=== PATIENT | male | born 1980 | race Caucasian/White ===

== ENCOUNTER 2016-08-15 16:31 | Inpatient (IN) | payer OTHER ==
[2016-08-15] VITALS (7 sets, daily range): BP systolic 114–147; BP diastolic 70–93; PULSE 96–115; RESP 16–18; TEMP 95.6–98.3; O2SAT 97–100
[~2016-08-15] VITALS: Ht 185.4 cm; Wt 77.0 kg
[2016-08-15] MEDS ORDERED: SODIUM CHLOR 0.9% 1000 ML INJ 800 ML IV ONE (17:32)
[2016-08-15] MEDS ORDERED: SODIUM CHLOR 0.9% 1000 ML INJ 1,000 ML IV ONE ×2 (17:32→19:00)
[2016-08-15] MEDS ORDERED: NICOTINE 21 MG/24 HR PATCH TD ONE (17:45)
[2016-08-15] MEDS ORDERED: MORPHINE SULFATE 4 MG/ML INJ IV PUSH ONE (17:45)
[2016-08-15] MEDS ORDERED: VANCOMYCIN INJ 1,000 MG in SODIUM CHLOR 0.9% 250 ML INJ 250 ML IV ONE (17:45)
[2016-08-15] MEDS ORDERED: LIDOCAINE 1%/EPINEPHrine 1:100,000 SOLN 20 ML VIAL INFIL ONE (18:15)
[2016-08-15] MEDS ORDERED: LORA-474 PO (18:15)
[2016-08-15 18:17] LABS: AUTOMATED NEUTROPHIL # 8.7 TH/MM3 (1.8-7.7); BASOPHIL # 0.1 TH/MM3 (0-0.2); BASOPHIL % 0.4 % (0.0-2.0); EOSINOPHIL # 0.3 TH/MM3 (0-0.4); EOSINOPHIL % 2.2 % (0.0-4.0); HEMATOCRIT 32.4 % (39.0-51.0); LYMPH % 18.9 % (9.0-44.0); LYMPHOCYTE # 2.3 TH/MM3 (1.0-4.8); MEAN CELL VOLUME 85.7 FL (80.0-100.0); MEAN CORPUSCULAR HEMOGLOBIN 28.1 PG (27.0-34.0); MEAN CORPUSCULAR HGB CONC 32.8 % (32.0-36.0); MONO % 6.6 % (0.0-8.0); NEUT % 71.9 % (16.0-70.0); PLATELET COUNT 349 TH/MM3 (150-450); RED BLOOD COUNT 3.78 MIL/MM3 (4.50-5.90); RED CELL DISTRIBUTION WIDTH 15.3 % (11.6-17.2); WHITE BLOOD COUNT 12.2 TH/MM3 (4.0-11.0)
[2016-08-15 18:20] LABS: HEMO FLAGS DIFF FINAL
[2016-08-15 18:26] LABS: APTT (PATIENT) 26.2 SEC (24.3-30.1); INTERNATIONAL NORMALIZED RATIO 0.9 RATIO; PROTHROMBIN TIME - PATIENT 10.1 SEC (9.8-11.6)
[2016-08-15 18:33] LABS: ANION GAP 10 MEQ/L (5-15); AST (GOT) 13 U/L (15-37); BICARBONATE 24.8 MEQ/L (21.0-32.0); BLOOD UREA NITROGEN 18 MG/DL (7-18); CHLORIDE 104 MEQ/L (98-107); GLOMERULAR FILTRATION RATE 85 ML/MIN (>89); POTASSIUM 4.4 MEQ/L (3.5-5.1); SODIUM (NA) 139 MEQ/L (136-145)
[2016-08-15 18:36] LABS: ALKALINE PHOSPHATASE 90 U/L (45-117); ALT (GPT) 19 U/L (12-78); TOTAL BILIRUBIN ADULT 0.2 MG/DL (0.2-1.0)
[2016-08-15] MEDS ORDERED: HYDROmorphone HCL PF 1 MG/ML VIAL IV PUSH ONE (18:45)
--- NOTE | 2016-08-15 18:45 | PD ---
HPI Chief Complaint: Skin Problem Time Seen by Provider: 17:12 Travel History International Travel<30 days: No Contact w/Intl Traveler<30days: No Traveled to known affect area: No History of Present Illness HPI 35-year-old male with history of IVDU presents for evaluation of fever, pain, swelling, and redness to his left mid/anterior forearm. The patient admits to injecting methamphetamine in this area, however he states he has not used IV drugs in one month. Patient noticed the area of pain and swelling which has been increasing over the last 2-3 days. He denies trauma. Temp of 100.3F at home. He is also complaining of dental pain mainly in his right lower molars and states that pus was draining from this area earlier today. PFSH Past Medical History Cardiovascular Problems: Yes (heart murmur) Diminished Hearing: No Tetanus Vaccination: > 5 Years Influenza Vaccination: No Past Surgical History Surgical History: No Previous Surgery Social History Alcohol Use: No Tobacco Use: Yes Substance Use: No Allergies-Medications (Allergen,Severity, Reaction): Coded Allergies: Aleve (Verified Allergy, Severe, Anaphylaxis, 08/15/16) Naproxen (Verified Allergy, Severe, Anaphylaxis, 08/15/16) Wellbutrin (Verified Allergy, Severe, Anaphylaxis, 08/15/16) Zoloft (Verified Allergy, Severe, Anaphylaxis, 08/15/16) Reported Meds & Prescriptions Reported Meds & Active Scripts Active Reported Ativan (Lorazepam) 1 Mg Tab 1 Mg PO DIRECTED PRN Review of Systems Except as stated in HPI: all other systems reviewed are Neg Physical Exam Narrative GENERAL: Well-developed, well-nourished, comfortable, no acute distress. SKIN: Warm and dry. Left mid/anterior forearm with large area of warmth and erythema/induration, no crepitus. This area was evaluated using a linear ultrasound probe in shows a large fluid collection. Long tract michel on bilateral forearms. HEAD: Atraumatic. Normocephalic. EYES: Pupils equal and round. No scleral icterus. No injection or drainage. ENT: Mucous membranes pink and dry. Poor dentition. No fluctuance. No purulent drainage. No tongue or lip swelling. No drooling or stridor. Normal phonation. NECK: Trachea midline. No JVD. No nuchal rigidity. CARDIOVASCULAR: Regular rate and rhythm. No murmur appreciated. RESPIRATORY: No accessory muscle use. Clear to auscultation. Breath sounds equal bilaterally. GASTROINTESTINAL: Abdomen soft, non-tender, nondistended. Hepatic and splenic margins not palpable. MUSCULOSKELETAL: Left forearm with skin exam as above. All compartments in left forearm are supple. Normal range of motion in left wrist/left elbow/left shoulder. NEUROLOGICAL: Awake and alert. No obvious cranial nerve deficits. Motor grossly within normal limits. Normal speech. PSYCHIATRIC: Appropriate mood and affect; insight and judgment normal. Data Data Last Documented VS Vital Signs Date Time Temp Pulse Resp B/P Pulse Ox O2 Delivery O2 Flow Rate FiO2 08/15/16 19:13 17 08/15/16 19:10 81 08/15/16 19:10 99 Room Air 08/15/16 18:46 126/78 08/15/16 18:01 98.2 Orders Complete Blood Count With Diff (08/15/16 17:32) Comprehensive Metabolic Panel (08/15/16 17:32) Prothrombin Time / Inr (Pt) (08/15/16 17:32) Act Partial Throm Time (Ptt) (08/15/16 17:32) Lactic Acid Sepsis Protocol (08/15/16 17:32) Blood Culture (08/15/16 17:32) Ecg Monitoring (08/15/16 17:32) Iv Access Insert/Monitor (08/15/16 17:32) Oximetry (08/15/16 17:32) Sodium Chlor 0.9% 1000 Ml Inj (Ns 1000 M (08/15/16 17:32) Sodium Chlor 0.9% 1000 Ml Inj (Ns 1000 M (08/15/16 17:32) Vancomycin Inj (Vancomycin Inj) (08/15/16 17:45) Morphine Inj (Morphine Inj) (08/15/16 17:45) Nicotine 21 Mg Patch.24 Hr (Habitrol 21 (08/15/16 17:45) Creatine Kinase (Cpk) (08/15/16 17:55) Lidocai-Epi 1%-1:100,000 Inj (Xylocaine- (08/15/16 18:15) Drug Screen, Random Urine (08/15/16 18:15) Wound Culture And Gram Stain (08/15/16 18:40) Hydromorphone Pf Inj (Dilaudid Pf Inj) (08/15/16 18:45) Sodium Chlor 0.9% 1000 Ml Inj (Ns 1000 M (08/15/16 19:00) Labs Laboratory Tests Test 08/15/16 08/15/16 17:40 17:55 White Blood Count 12.2 TH/MM3 Red Blood Count 3.78 MIL/MM3 Hemoglobin 10.6 GM/DL Hematocrit 32.4 % Mean Corpuscular Volume 85.7 FL Mean Corpuscular Hemoglobin 28.1 PG Mean Corpuscular Hemoglobin 32.8 % Concent Red Cell Distribution Width 15.3 % Platelet Count 349 TH/MM3 Mean Platelet Volume 6.6 FL Neutrophils (%) (Auto) 71.9 % Lymphocytes (%) (Auto) 18.9 % Monocytes (%) (Auto) 6.6 % Eosinophils (%) (Auto) 2.2 % Basophils (%) (Auto) 0.4 % Neutrophils # (Auto) 8.7 TH/MM3 Lymphocytes # (Auto) 2.3 TH/MM3 Monocytes # (Auto) 0.8 TH/MM3 Eosinophils # (Auto) 0.3 TH/MM3 Basophils # (Auto) 0.1 TH/MM3 CBC Comment DIFF FINAL Differential Comment Prothrombin Time 10.1 SEC Prothromb Time International 0.9 RATIO Ratio Activated Partial 26.2 SEC Thromboplast Time Sodium Level 139 MEQ/L Potassium Level 4.4 MEQ/L Chloride Level 104 MEQ/L Carbon Dioxide Level 24.8 MEQ/L Anion Gap 10 MEQ/L Blood Urea Nitrogen 18 MG/DL Creatinine 1.01 MG/DL Estimat Glomerular Filtration 85 ML/MIN Rate Random Glucose 116 MG/DL Lactic Acid Level 2.6 mmol/L Calcium Level 8.4 MG/DL Total Bilirubin 0.2 MG/DL Aspartate Amino Transf 13 U/L (AST/SGOT) Alanine Aminotransferase 19 U/L (ALT/SGPT) Alkaline Phosphatase 90 U/L Total Protein 7.4 GM/DL Albumin 2.8 GM/DL Total Creatine Kinase 23 U/L [facility] Medical Decision Making Medical Screen Exam Complete: Yes Emergency Medical Condition: Yes Differential Diagnosis Abscess, sepsis, compartment syndrome unlikely, necrotizing fasciitis unlikely, dental infection Narrative Course Initial vital signs show heart rate 1:15, blood pressure 147/93, pulse ox 97% on room air, oral temp of 98.3F. CBC shows WBC 12.2, hemoglobin 10.6, hematocrit 32.4, platelets 349, neutrophils 72%. CMP is essentially unremarkable. Lactic acid is 2.6. CK is 23. Patient has an obvious deep left/mid forearm abscess. Bedside ultrasound using a linear probe shows a large fluid collection. He is normal range of motion in the left wrist, elbow, and shoulder. The compartments of the left forearm are soft. I do not believe that this is a compartment syndrome. Incision and drainage was performed by my PA with a moderate amount of foul-smelling/ yellowish/greenish purulent drainage expressed. This was sent for culture and sensitivity. The patient was started on IV vancomycin as well as given 3 L of normal saline.. He will be admitted for further treatment and evaluation of left forearm abscess. Blood culture sent. Case discussed with hospitalist Dr. Velasquez who will admit the patient to her service for IV antibiotics and follow up blood cultures. Diagnosis Primary Impression: Sepsis Qualified Code: A41.9 - Sepsis, due to unspecified organism Additional Impression: Abscess of left forearm Admitting Information Admitting Physician Requests: it Dread Dove MD Aug 15, 2016 18:44
--- NOTE | 2016-08-15 18:49 | PD ---
Physical Exam Date Seen by Provider: Aug 15, 2016 Time Seen by Provider: 17:30 Narrative Was asked by Dr. Dove to perform an I&D of a left forearm abscess. Data Data Last Documented VS Vital Signs Date Time Temp Pulse Resp B/P Pulse Ox O2 Delivery O2 Flow Rate FiO2 08/15/16 18:01 98.2 98 18 136/76 99 Room Air Orders Complete Blood Count With Diff (08/15/16 17:32) Comprehensive Metabolic Panel (08/15/16 17:32) Prothrombin Time / Inr (Pt) (08/15/16 17:32) Act Partial Throm Time (Ptt) (08/15/16 17:32) Lactic Acid Sepsis Protocol (08/15/16 17:32) Blood Culture (08/15/16 17:32) Ecg Monitoring (08/15/16 17:32) Iv Access Insert/Monitor (08/15/16 17:32) Oximetry (08/15/16 17:32) Sodium Chlor 0.9% 1000 Ml Inj (Ns 1000 M (08/15/16 17:32) Sodium Chlor 0.9% 1000 Ml Inj (Ns 1000 M (08/15/16 17:32) Vancomycin Inj (Vancomycin Inj) (08/15/16 17:45) Morphine Inj (Morphine Inj) (08/15/16 17:45) Nicotine 21 Mg Patch.24 Hr (Habitrol 21 (08/15/16 17:45) Creatine Kinase (Cpk) (08/15/16 17:55) Lidocai-Epi 1%-1:100,000 Inj (Xylocaine- (08/15/16 18:15) Drug Screen, Random Urine (08/15/16 18:15) Wound Culture And Gram Stain (08/15/16 18:40) Hydromorphone Pf Inj (Dilaudid Pf Inj) (08/15/16 18:45) Labs Laboratory Tests Test 08/15/16 17:40 White Blood Count 12.2 TH/MM3 Red Blood Count 3.78 MIL/MM3 Hemoglobin 10.6 GM/DL Hematocrit 32.4 % Mean Corpuscular Volume 85.7 FL Mean Corpuscular Hemoglobin 28.1 PG Mean Corpuscular Hemoglobin 32.8 % Concent Red Cell Distribution Width 15.3 % Platelet Count 349 TH/MM3 Mean Platelet Volume 6.6 FL Neutrophils (%) (Auto) 71.9 % Lymphocytes (%) (Auto) 18.9 % Monocytes (%) (Auto) 6.6 % Eosinophils (%) (Auto) 2.2 % Basophils (%) (Auto) 0.4 % Neutrophils # (Auto) 8.7 TH/MM3 Lymphocytes # (Auto) 2.3 TH/MM3 Monocytes # (Auto) 0.8 TH/MM3 Eosinophils # (Auto) 0.3 TH/MM3 Basophils # (Auto) 0.1 TH/MM3 CBC Comment DIFF FINAL Differential Comment Prothrombin Time 10.1 SEC Prothromb Time International 0.9 RATIO Ratio Activated Partial 26.2 SEC Thromboplast Time Sodium Level 139 MEQ/L Potassium Level 4.4 MEQ/L Chloride Level 104 MEQ/L Carbon Dioxide Level 24.8 MEQ/L Anion Gap 10 MEQ/L Blood Urea Nitrogen 18 MG/DL Creatinine 1.01 MG/DL Estimat Glomerular Filtration 85 ML/MIN Rate Random Glucose 116 MG/DL Lactic Acid Level 2.6 mmol/L Calcium Level 8.4 MG/DL Total Bilirubin 0.2 MG/DL Aspartate Amino Transf 13 U/L (AST/SGOT) Alanine Aminotransferase 19 U/L (ALT/SGPT) Alkaline Phosphatase 90 U/L Total Protein 7.4 GM/DL Albumin 2.8 GM/DL MDM Medical Record Reviewed: Yes Supervised Visit with SONG: Yes Differential Diagnosis Cellulitis. Abscess. Fasciitis. Narrative Course I&D of abscess performed. See procedure note. Procedures Procedure Narrative After the risks and benefits were discussed the following procedure was performed: INCISION AND DRAINAGE OF ABSCESS: The area was prepped and was sterilely draped. A subcutaneous wheal of 1 % Xylocaine with Epi with a total number 6mls was used to anesthetize the area. The area was properly anesthetized. A number 11 scalpel was used to make a 1-cm incision across the area of the abscess. Cultures were obtained. The abscess was drained an irrigated with normal saline. Quarter inch iodoform packing was placed in the wound. Sterile dressing applied. The patient tolerated the procedure well. Patient is to be admitted by Dr. Dove. Condition: Stable Aman Chaudhary Aug 15, 2016 18:49
[2016-08-15] MEDS ORDERED: Vancomycin Consult Pharmacy 1 EA OTHER SCH (19:30)
[2016-08-15] MEDS ORDERED: NALOXONE HCL 0.4 MG/ML AMP IV PRN (19:30)
[2016-08-15 20:10] LABS: LACTIC ACID GHOST NOT REPORTABLE
[2016-08-15 20:28] LABS: AMPHETAMINE, URINE NEG (NEG); BARBITURATES, URINE NEG (NEG); COCAINE, URINE NEG (NEG)
--- NOTE | 2016-08-15 20:36 | HHI.HP ---
HPI Service [facility] Primary Care Physician No Primary Care Physician Admission Diagnosis sepsis, left forearm abscess, IVDU Diagnoses: Chief Complaint: left forearm pain Travel History International Travel<30 Days: No Contact w/Intl Traveler <30 Da: No Traveled to Known Affected Are: No Sepsis Criteria SIRS Criteria (2 or more): Heart rate over 90, WBC > 01016, < 4000 or > 10% bands Sepsis Criteria (SIRS+source): Infect source susp/known Severe Sepsis (+one): Lactate >2 History of Present Illness History taken from patient and ED Physician. 35 y/o patient in the history of IVDA and anxiety presents to the ED with complaints of fever, and pain to left forearm. He states he was helping his friend who has a current staph infection one week ago. 2 days ago he noticed tenderness in his left forearm. Today it began to swell and increase up his arm. He states he has used IV drugs in the past but has not used in the last month. Complains of fevers at home, with an unknown temp, nausea, and diarrhea 3x a day for the past 2 days. He denies any vomiting. He is also complaining of right lower jaw dental pain. He says his teeth are bad and feels they are draining pus. He denies any recent use of antibiotic use. He denies any chest pain, shortness of breath or abdominal pain. Per ED report: Left forearm I&D preformed by JAHAIRA, drainage described as yellowish , greenish, and purulent. Review of Systems Constitutional: COMPLAINS OF: Fever, Chills Ears, nose, mouth, throat: COMPLAINS OF: Toothache Respiratory: DENIES: Cough, Sputum production, Shortness of breath Cardiovascular: DENIES: Chest pain, Palpitations Gastrointestinal: COMPLAINS OF: Diarrhea, Nausea, DENIES: Abdominal pain, Black stools, Bloody stools, Constipation, Vomiting Genitourinary: DENIES: Hematuria, Dysuria Musculoskeletal: COMPLAINS OF: Muscle aches (Left forearm), DENIES: Neck pain Integumentary: DENIES: Rash Neurologic: DENIES: Headache, Localized weakness Psychiatric: COMPLAINS OF: Anxiety Past Family Social History Past Medical History Heart Murmer Anxiety Past Surgical History Patient denies any surgical history Reported Medications Reported Meds & Active Scripts Active Reported Ativan (Lorazepam) 1 Mg Tab 1 Mg PO DIRECTED PRN Allergies: Coded Allergies: Aleve (Verified Allergy, Severe, Anaphylaxis, 08/15/16) Naproxen (Verified Allergy, Severe, Anaphylaxis, 08/15/16) Wellbutrin (Verified Allergy, Severe, Anaphylaxis, 08/15/16) Zoloft (Verified Allergy, Severe, Anaphylaxis, 08/15/16) Active Ordered Medications Current Medications Medications (Trade) Dose Ordered Sig/Alverne Route Start Time Stop Time Status Last Admin (NS Flush) 2 ml UNSCH PRN FLUSH 08/15/16 19:30 (NS Flush) 2 ml BID FLUSH 08/15/16 21:00 Naloxone HCl 0.4 mg 0.4 mg UNSCH PRN IV 08/15/16 19:30 Pharmacy Profile Note 0 ml @ 0 mls/hr UNSCH OTHER 08/15/16 19:30 (Zosyn 4.5 Gm Premix) 100 ml @ 200 mls/hr Q6H IV 08/15/16 21:00 Family History Family history significant for htn, dm, and cancer Social History Tobacco use: a few cigarettes a day Alcohol use: occasionally Drug use: meth IV, and ICE Physical Exam Vital Signs Vital Signs Date Time Temp Pulse Resp B/P Pulse Ox O2 Delivery O2 Flow Rate FiO2 08/15/16 19:15 98.2 98 17 126/78 99 Room Air 08/15/16 19:13 17 08/15/16 19:10 81 08/15/16 19:10 17 99 Room Air 08/15/16 18:46 96 17 126/78 100 Room Air 08/15/16 18:01 98.2 98 18 136/76 99 Room Air 08/15/16 17:53 17 08/15/16 17:45 18 98 Room Air 08/15/16 17:06 17 08/15/16 16:32 98.3 115 16 147/93 97 Physical Exam GENERAL: This is a well-nourished, well-developed patient, in pain. SKIN: left forearm erythema and edema. HEAD: Atraumatic. Normocephalic. No temporal or scalp tenderness. EYES: Pupils equal round and reactive. ENT: Nose without bleeding, purulent drainage or septal hematoma. Airway patent. NECK: Trachea midline. No JVD CARDIOVASCULAR: Regular rate and rhythm without murmurs, gallops, or rubs. RESPIRATORY: Clear to auscultation. Breath sounds equal bilaterally. No wheezes , rales, or rhonchi. GASTROINTESTINAL: Abdomen soft, non-tender, nondistended. MUSCULOSKELETAL: Left upper extremities with edema. No calf tenderness. NEUROLOGICAL: Awake and alert. Motor and sensory grossly within normal limits. Normal speech. Laboratory Laboratory Tests Test 08/15/16 08/15/16 17:40 17:55 White Blood Count 12.2 Red Blood Count 3.78 Hemoglobin 10.6 Hematocrit 32.4 Mean Corpuscular Volume 85.7 Mean Corpuscular Hemoglobin 28.1 Mean Corpuscular Hemoglobin 32.8 Concent Red Cell Distribution Width 15.3 Platelet Count 349 Mean Platelet Volume 6.6 Neutrophils (%) (Auto) 71.9 Lymphocytes (%) (Auto) 18.9 Monocytes (%) (Auto) 6.6 Eosinophils (%) (Auto) 2.2 Basophils (%) (Auto) 0.4 Neutrophils # (Auto) 8.7 Lymphocytes # (Auto) 2.3 Monocytes # (Auto) 0.8 Eosinophils # (Auto) 0.3 Basophils # (Auto) 0.1 CBC Comment DIFF FINAL Differential Comment Prothrombin Time 10.1 Prothromb Time International 0.9 Ratio Activated Partial 26.2 Thromboplast Time Sodium Level 139 Potassium Level 4.4 Chloride Level 104 Carbon Dioxide Level 24.8 Anion Gap 10 Blood Urea Nitrogen 18 Creatinine 1.01 Estimat Glomerular Filtration 85 Rate Random Glucose 116 Lactic Acid Level 2.6 Calcium Level 8.4 Total Bilirubin 0.2 Aspartate Amino Transf 13 (AST/SGOT) Alanine Aminotransferase 19 (ALT/SGPT) Alkaline Phosphatase 90 Total Protein 7.4 Albumin 2.8 Total Creatine Kinase 23 Date/Time Procedure Status Source Growth 08/15/16 18:45 Gram Stain Received Wound Arm Pending 08/15/16 18:45 Wound Culture Received Wound Arm Pending 08/15/16 17:40 Aerobic Blood Culture Received Blood Peripheral Pending 08/15/16 17:40 Anaerobic Blood Culture Received Blood Peripheral Pending Result Diagram: 08/15/16 1740 08/15/16 1740 Assessment and Plan Problem List: (1) Sepsis ICD Code: A41.9 Status: Acute (2) Abscess of left forearm ICD Code: L02.414 Status: Acute (3) Anxiety ICD Code: F41.9 Status: Acute Assessment and Plan 35 y/o male with a history of IVDA and anxiety presented with: Sepsis, wbc >44211, HR>90, lactic >2 -Wound culture and blood cultures pending -CBC in AM -2nd lactic pending Abscess of left forearm I&D of left forearm preformed in ED -Vanco IV and Zoysn IV ordered -Pain management with Morphine IV Anxiety, chronic -Ativan PO PRN DVT prophylaxis: SCDs Written by Vanessa MEHTA, acting as scribe for Dr. Velasquez on 08/15/16 at 2100. The documentation accurately reflects the work performed [id number] and decisions made by me and the physician Dr Velasquez on 08/15/16. The documentation accurately reflects the work performed [id number] by me on at 2100 Discussed Condition With Patient, RN Physician Certification 2 Midnight Certification Type: Admission for Inpatient Services Order for Inpatient Services The services are ordered in accordance with Medicare regulations or non- Medicare payer requirements, as applicable. In the case of services not specified as inpatient-only, they are appropriately provided as inpatient services in accordance with the 2-midnight benchmark. Estimated LOS (days): 3 days is the estimated time the patient will need to remain in the hospital, assuming treatment plan goals are met and no additional complications. Post-Hospital Plan: Home Problem Qualifiers (1) Sepsis: Qualified Code: A41.9 - Sepsis, due to unspecified organism Vanessa Barger Aug 15, 2016 20:36 Poonam Velasquez MD Aug 16, 2016 07:59
[2016-08-15] MEDS: SODIUM CHLORIDE 0.9% FLUSH 5 ML FLUSH FLUSH SCH (21:00)
[2016-08-15] MEDS: PIPERACIL-TAZO 4.5 GM PREMIX 100 ML IV SCH (21:18)
[2016-08-15] MEDS ORDERED: MORPHINE SULFATE 4 MG/ML INJ IV PUSH PRN (21:30)
[2016-08-15] MEDS: LORazepam 1 MG TAB PO PRN (22:00)
[2016-08-16 02:00] VITALS: BP 156/87; PULSE 109; RESP 20; TEMP 99.3; O2SAT 100
[2016-08-16] MEDS: MORPHINE SULFATE 4 MG/ML INJ IV PUSH PRN ×7 (02:15→23:38)
[2016-08-16] MEDS: PIPERACIL-TAZO 4.5 GM PREMIX 100 ML IV SCH ×4 (03:38→22:21)
[2016-08-16] MEDS: LORazepam 1 MG TAB PO PRN ×4 (04:26→23:50)
[2016-08-16] MEDS: VANCOMYCIN INJ 1,250 MG in SODIUM CHLOR 0.9% 250 ML INJ 250 ML IV SCH ×2 (04:27→15:33)
[2016-08-16 05:49] LABS: AUTOMATED NEUTROPHIL # 7.9 TH/MM3 (1.8-7.7); BASOPHIL % 0.3 % (0.0-2.0); EOSINOPHIL # 0.2 TH/MM3 (0-0.4); EOSINOPHIL % 1.7 % (0.0-4.0); HEMATOCRIT 34.2 % (39.0-51.0); HEMO FLAGS DIFF FINAL; LYMPHOCYTE # 2.8 TH/MM3 (1.0-4.8); MEAN CELL VOLUME 85.4 FL (80.0-100.0); MEAN CORPUSCULAR HEMOGLOBIN 28.9 PG (27.0-34.0); MEAN CORPUSCULAR HGB CONC 33.8 % (32.0-36.0); MONO % 6.5 % (0.0-8.0); NEUT % 67.5 % (16.0-70.0); PLATELET COUNT 356 TH/MM3 (150-450); RED BLOOD COUNT 4.01 MIL/MM3 (4.50-5.90); RED CELL DISTRIBUTION WIDTH 15.5 % (11.6-17.2); WHITE BLOOD COUNT 11.8 TH/MM3 (4.0-11.0)
[2016-08-16 06:07] LABS: BICARBONATE 26.5 MEQ/L (21.0-32.0); POTASSIUM 4.2 MEQ/L (3.5-5.1)
[2016-08-16 08:00] VITALS: BP 130/83; PULSE 105; RESP 18; TEMP 98.5; O2SAT 100
[2016-08-16] MEDS: SODIUM CHLORIDE 0.9% FLUSH 5 ML FLUSH FLUSH SCH ×2 (08:44→22:21)
[2016-08-16] MEDS: ACETAMINOPHEN/HYDROcodone 325 MG/5 MG TAB PO PRN ×3 (09:53→18:23)
[2016-08-16] MEDS: NICOTINE 14 MG/24 HR PATCH TD SCH (09:54)
--- NOTE | 2016-08-16 10:51 | HHI.PR ---
Subjective Remarks Patient seen in follow-up for left forearm abscess, IV drug abuser. He reports uncontrolled pain on the left forearm. He also requested a nicotine patch. Objective Vitals Vital Signs Date Time Temp Pulse Resp B/P Pulse Ox O2 Delivery O2 Flow Rate FiO2 08/16/16 08:00 98.5 105 18 130/83 100 08/16/16 02:00 99.3 109 20 156/87 100 08/15/16 23:00 95.6 102 18 114/70 100 Room Air 08/15/16 22:05 16 08/15/16 19:15 98.2 98 17 126/78 99 Room Air 08/15/16 19:13 17 08/15/16 19:10 81 08/15/16 19:10 17 99 Room Air 08/15/16 18:46 96 17 126/78 100 Room Air 08/15/16 18:01 98.2 98 18 136/76 99 Room Air 08/15/16 17:53 17 08/15/16 17:45 18 98 Room Air 08/15/16 17:06 17 08/15/16 16:32 98.3 115 16 147/93 97 I/O 08/15/16 08/15/16 08/15/16 08/16/16 08/16/16 08/16/16 07:00 15:00 23:00 07:00 15:00 23:00 Intake Total 200 ml 486 ml Balance 200 ml 486 ml Intake Oral 200 ml 240 ml IV Total 246 ml # Voids 1 3 # Bowel Movements 0 Result Diagram: 08/16/16 04308/16/16 0430 Objective Remarks GENERAL: This is a well-nourished, well-developed patient, in no apparent distress. SKIN: Left medial forearm status post I&D of an abscess. 1 cm incision, It is packed. Per the patient erythema has improved. Tender to palpation. CARDIOVASCULAR: Normal rate and regular rhythm. 1/6 MILAN best heard at the apex. RESPIRATORY: Good respiratory efforts. Breath sounds equal and clear to auscultation bilaterally. GASTROINTESTINAL: Abdomen soft, non-tender, non-distended. Normal active bowel sounds MUSCULOSKELETAL: Extremities without cyanosis, or edema. NEURO: Alert & Oriented x4 to person, place, time, situation. Moves all ext x4 PSYCH: Appropriate mood and affect. A/P Problem List: (1) Sepsis ICD Code: A41.9 Status: Acute (2) Abscess of left forearm ICD Code: L02.414 Status: Acute (3) Anxiety ICD Code: F41.9 Status: Acute Assessment and Plan 35-year-old IV drug user admitted for: Sepsis secondary to left forearm abscess and cellulitis: - Continue Zosyn and vancomycin. Follow wound and blood cultures. Left forearm abscess: Continue local wound care. Antibiotics as above. Pain control. We'll change pain medication to Lortab 5/325 every 4 hours as needed and morphine for breakthrough pain. Patient advised that we will not escalate his pain medications. Anxiety: Chronic. Continue Ativan as needed. Problem Qualifiers (1) Sepsis: Qualified Code: A41.9 - Sepsis, due to unspecified organism Quynh Zamora MD Aug 16, 2016 10:51
[2016-08-16 12:00] VITALS: BP 128/77; PULSE 105; RESP 17; TEMP 97.8; O2SAT 99
[2016-08-16 16:00] VITALS: BP 123/69; PULSE 94; RESP 18; TEMP 97.8; O2SAT 99
[2016-08-16 20:00] VITALS: BP 155/86; PULSE 99; RESP 20; TEMP 98.2; O2SAT 100
[2016-08-16] MEDS: REMOVE OLD NICODERM (NICOTINE) PATCH TD SCH (21:00)
[2016-08-17] VITALS: BP 145/81; PULSE 92; RESP 20; TEMP 97.2; O2SAT 99
[2016-08-17] MEDS: ACETAMINOPHEN/HYDROcodone 325 MG/5 MG TAB PO PRN ×5 (01:12→21:31)
[2016-08-17] MEDS: PIPERACIL-TAZO 4.5 GM PREMIX 100 ML IV SCH ×4 (03:30→20:06)
[2016-08-17] MEDS: MORPHINE SULFATE 4 MG/ML INJ IV PUSH PRN ×7 (03:32→23:03)
[2016-08-17] MEDS ORDERED: PHARMACY ORDERED LAB XX ONE (03:45)
[2016-08-17] MEDS: VANCOMYCIN INJ 1,250 MG in SODIUM CHLOR 0.9% 250 ML INJ 250 ML IV SCH (04:21)
[2016-08-17 04:39] LABS: VANCOMYCIN TROUGH 6.4 MCG/ML (5.0-10.0)
[2016-08-17] MEDS: NICOTINE 14 MG/24 HR PATCH TD SCH (07:26)
[2016-08-17] MEDS: LORazepam 1 MG TAB PO PRN ×3 (07:27→20:06)
[2016-08-17] MEDS: SODIUM CHLORIDE 0.9% FLUSH 5 ML FLUSH FLUSH SCH ×2 (07:27→20:06)
[2016-08-17 08:00] VITALS: BP 132/77; PULSE 91; RESP 16; TEMP 97.4; O2SAT 98
[2016-08-17] MEDS ORDERED: INFLUENZA VIRUS VACCINE (QUADRIVALENT) 0.5 ML SYR IM ONE (10:00)
[2016-08-17 12:00] VITALS: BP 125/88; PULSE 91; RESP 16; TEMP 97.3; O2SAT 98
[2016-08-17] MEDS ORDERED: VANCOMYCIN INJ 1,250 MG in SODIUM CHLOR 0.9% 250 ML INJ 250 ML IV SCH (12:00)
--- NOTE | 2016-08-17 12:29 | HHI.PR ---
Subjective Remarks Patient seen in follow-up for left forearm abscess and an IV drug user. He continues to report persistent pain and requesting more pain medications. However he admits that the swelling is improving. There has been minimal drainage. No fevers or chills. Objective Vitals Vital Signs Date Time Temp Pulse Resp B/P Pulse Ox O2 Delivery O2 Flow Rate FiO2 08/17/16 08:00 97.4 91 16 132/77 98 08/17/16 00:00 97.2 92 20 145/81 99 08/16/16 20:00 98.2 99 20 155/86 100 08/16/16 16:00 97.8 94 18 123/69 99 I/O 08/16/16 08/16/16 08/16/16 08/17/16 08/17/16 08/17/16 07:00 15:00 23:00 07:00 15:00 23:00 Intake Total 486 ml 1710 ml 1310 ml 1840 ml 100 ml Output Total 300 ml Balance 486 ml 1710 ml 1010 ml 1840 ml 100 ml Intake Oral 240 ml 1560 ml 960 ml 1440 ml IV Total 246 ml 150 ml 350 ml 400 ml 100 ml Output Urine Total 300 ml # Voids 3 3 3 # Bowel Movements 2 Result Diagram: 08/16/16 0430 08/17/16 0345 Objective Remarks GENERAL: This is a well-nourished, well-developed patient, in no apparent distress. SKIN: Left medial forearm status post I&D of an abscess. 1 cm incision, It is packed. Not much erythema. Tender to palpation. Improved. CARDIOVASCULAR: Normal rate and regular rhythm. 1/6 MILAN best heard at the apex. RESPIRATORY: Good respiratory efforts. Breath sounds equal and clear to auscultation bilaterally. GASTROINTESTINAL: Abdomen soft, non-tender, non-distended. Normal active bowel sounds MUSCULOSKELETAL: Extremities without cyanosis, or edema. NEURO: Alert & Oriented x4 to person, place, time, situation. Moves all ext x4 PSYCH: Appropriate mood and affect. A/P Problem List: (1) Sepsis ICD Code: A41.9 Status: Acute (2) Abscess of left forearm ICD Code: L02.414 Status: Acute (3) Anxiety ICD Code: F41.9 Status: Acute Assessment and Plan 35-year-old IV drug user admitted for: Sepsis secondary to left forearm abscess and cellulitis: - Continue Zosyn. Discontinue vancomycin. Wound culture grew Klebsiella and strep viridans. - Blood cultures no growth to date. Follow tomorrow. Left forearm abscess: Continue local wound care. Antibiotics as above. Pain control. Continue pain medication Lortab 5/325 every 4 hours as needed and morphine for breakthrough pain. Patient advised that we will not escalate his pain medications. Hepatitis C: Patient will need outpatient follow up for treatment. Anxiety: Chronic. Continue Ativan as needed. Discharge Planning Continue IV antibiotics and monitor blood cultures for 1 more day. If blood cultures remain negative, he can be discharged home on oral antibiotics tomorrow. Problem Qualifiers (1) Sepsis: Qualified Code: A41.9 - Sepsis, due to unspecified organism Quynh Zamora MD Aug 17, 2016 12:29
[2016-08-17 16:00] VITALS: BP 136/84; PULSE 102; RESP 16; TEMP 97.7; O2SAT 99
[2016-08-17] MEDS: REMOVE OLD NICODERM (NICOTINE) PATCH TD SCH (20:10)
[2016-08-17 20:22] VITALS: BP 142/79; PULSE 102; RESP 18; TEMP 96.9; O2SAT 96
[2016-08-17] MEDS: SODIUM CHLORIDE 0.9% FLUSH 5 ML FLUSH FLUSH PRN (23:02)
[2016-08-17 23:48] VITALS: BP 152/75; PULSE 89; RESP 20; TEMP 97.6; O2SAT 98
[2016-08-18] MEDS: LORazepam 1 MG TAB PO PRN ×2 (01:29→07:12)
[2016-08-18] MEDS: PIPERACIL-TAZO 4.5 GM PREMIX 100 ML IV SCH ×2 (01:30→08:15)
[2016-08-18] MEDS: SODIUM CHLORIDE 0.9% FLUSH 5 ML FLUSH FLUSH PRN ×3 (01:30→05:13)
[2016-08-18] MEDS: ACETAMINOPHEN/HYDROcodone 325 MG/5 MG TAB PO PRN ×3 (01:30→10:10)
[2016-08-18] MEDS: MORPHINE SULFATE 4 MG/ML INJ IV PUSH PRN ×3 (02:15→08:15)
[2016-08-18 08:00] VITALS: BP 132/82; PULSE 99; RESP 16; TEMP 96.8; O2SAT 99
[2016-08-18] MEDS: NICOTINE 14 MG/24 HR PATCH TD SCH (08:16)
[2016-08-18] MEDS: SODIUM CHLORIDE 0.9% FLUSH 5 ML FLUSH FLUSH SCH (08:17)
[2016-08-18] MEDS ORDERED: HYDR-3516 PO (09:49)
[2016-08-18] MEDS ORDERED: BACT800T5 PO (09:51)
--- NOTE | 2016-08-18 09:53 | HHI.DCPOC ---
Discharge Care Plan Diagnosis: (1) Sepsis (2) Abscess of left forearm (3) Anxiety (4) Hepatitis C Goals to Promote Your Health * To prevent worsening of your condition and complications * To maintain your health at the optimal level Directions to Meet Your Goals Take your medications as prescribed Follow your dietary instruction Follow activity as directed Keep your appointments as scheduled Take your immunizations and boosters as scheduled If your symptoms worsen call your PCP, if no PCP go to Urgent Care Center or Emergency Room Smoking is Dangerous to Your Health. Avoid second hand smoke Call the 24-hour hour crisis hotline for domestic abuse at Quynh Zamora MD Aug 18, 2016 09:53
--- NOTE | 2016-08-18 09:54 | HHI.DS ---
Discharge Summary Admission Date Aug 15, 2016 at 19:24 Discharge Date: Aug 18, 2016 Admitting Diagnosis sepsis, left forearm abscess, IVDU (1) Sepsis ICD Code: A41.9 (2) Abscess of left forearm ICD Code: L02.414 (3) Anxiety ICD Code: F41.9 Procedures Incision and drainage of left forearm abscess in the emergency room. Brief History - From Admission History of present illness from admitting physician History taken from patient and ED Physician. 35 y/o patient in the history of IVDA and anxiety presents to the ED with complaints of fever, and pain to left forearm. He states he was helping his friend who has a current staph infection one week ago. 2 days ago he noticed tenderness in his left forearm. Today it began to swell and increase up his arm. He states he has used IV drugs in the past but has not used in the last month. Complains of fevers at home, with an unknown temp, nausea, and diarrhea 3x a day for the past 2 days. He denies any vomiting. He is also complaining of right lower jaw dental pain. He says his teeth are bad and feels they are draining pus. He denies any recent use of antibiotic use. He denies any chest pain, shortness of breath or abdominal pain. Per ED report: Left forearm I&D preformed by JAHAIRA, drainage described as yellowish , greenish, and purulent. CBC/BMP: 08/16/16 0430 08/17/16 0345 Significant Findings Laboratory Tests Test 08/15/16 08/15/16 08/15/16 08/15/16 17:40 17:55 19:40 22:30 White Blood Count 12.2 TH/MM3 (4.0-11.0) Red Blood Count 3.78 MIL/MM3 (4.50-5.90) Hemoglobin 10.6 GM/DL (13.0-17.0) Hematocrit 32.4 % (39.0-51.0) Mean Platelet Volume 6.6 FL (7.0-11.0) Neutrophils (%) (Auto) 71.9 % (16.0-70.0) Neutrophils # (Auto) 8.7 TH/MM3 (1.8-7.7) Estimat Glomerular Filtration 85 ML/MIN (>89) Rate Random Glucose 116 MG/DL (74-106) Lactic Acid Level 2.6 mmol/L (0.4-2.0) Calcium Level 8.4 MG/DL (8.5-10.1) Aspartate Amino Transf 13 U/L (15-37) (AST/SGOT) Albumin 2.8 GM/DL (3.4-5.0) Total Creatine Kinase 23 U/L (39-308) Urine Benzodiazepines Screen POS (NEG) Hepatitis C Antibody REACTIVE (NEGATIVE) Test 08/16/16 04:30 White Blood Count 11.8 TH/MM3 (4.0-11.0) Red Blood Count 4.01 MIL/MM3 (4.50-5.90) Hemoglobin 11.6 GM/DL (13.0-17.0) Hematocrit 34.2 % (39.0-51.0) Mean Platelet Volume 6.7 FL (7.0-11.0) Neutrophils # (Auto) 7.9 TH/MM3 (1.8-7.7) Estimat Glomerular Filtration 87 ML/MIN (>89) Rate Random Glucose 109 MG/DL (74-106) PE at Discharge GENERAL: This is a well-nourished, well-developed patient, in no apparent distress. SKIN: Left medial forearm status post I&D of an abscess. 1 cm incision, It is packed. Not much erythema. Tender to palpation. Improved. CARDIOVASCULAR: Normal rate and regular rhythm. 1/6 MILAN best heard at the apex. RESPIRATORY: Good respiratory efforts. Breath sounds equal and clear to auscultation bilaterally. GASTROINTESTINAL: Abdomen soft, non-tender, non-distended. Normal active bowel sounds MUSCULOSKELETAL: Extremities without cyanosis, or edema. NEURO: Alert & Oriented x4 to person, place, time, situation. Moves all ext x4 PSYCH: Appropriate mood and affect. Pt update on day of discharge Patient reports that he is feeling okay. We discussed discharge planning at length and the need to follow up outpatient with the health department and his primary care physician for hepatitis C. Hospital Course 35-year-old IV drug user admitted sepsis secondary to left forearm abscess and cellulitis. Evaluation and treatment course detailed below: Sepsis secondary to left forearm abscess and cellulitis:Patient was initially treated with vancomycin and Zosyn. Wound culture grew Klebsiella and strep viridans. Symptoms significantly improved with resolved swelling and cellulitis. - Blood cultures were negative at 72 hours. The patient was discharged home on Bactrim to continue treatment for the skin infection. - Patient was given a limited supply of pain medication. Hepatitis C: Patient will need outpatient follow up for treatment. He was counseled on the need to follow-up with her primary care physician and/or the health department. Anxiety: Chronic. Continue Ativan as needed. Pt Condition on Discharge: Good Discharge Disposition: Discharge Home Discharge Time: <= 30 minutes Discharge Instructions DIET: Follow Instructions for: As Tolerated, No Restrictions Activities you can perform: Regular-No Restrictions Follow up Referrals: PCP Follow-up - 1 Week New Medications: Sulfamethoxazole-Trimethoprim (Bactrim DS) 800-160 Mg Tab 1 TAB PO BID Infection #14 Ref 0 TAB Hydrocodone-Acetaminophen (Hydrocodone-Acetaminophen) 5-325 mg Tab 1 TAB PO Q4H PRN PAIN GREATER THAN 5 #15 TAB Continued Medications: Lorazepam (Ativan) 1 Mg Tab 1 MG PO DIRECTED PRN ANXIETY AND/OR AGITATION Ref 0 TAB Quynh Zamora MD Aug 18, 2016 09:54
[2016-08-18] MEDS ORDERED: PHARMACY ORDERED LAB XX ONE (11:45)
== END 2016-08-18 11:08 | disposition home or self-care (01) | DRG 872 ==
LOC: NEPC 16:31 → NEDA 19:24 → NEDH 23:29 → N07B 08-16 01:54
PROVIDERS: ADMIT Family Medicine; ATTEND Family Medicine
PROC: 0H9EXZX Drainage of Left Lower Arm Skin, External Approach, Diagnostic (ICD-10-PCS; principal; 2016-08-15)
DX: A41.9 Sepsis, unspecified organism (principal); L02.414 Cutaneous abscess of left upper limb; L03.114 Cellulitis of left upper limb; K08.89 Other specified disorders of teeth and supporting structures; F19.10 Other psychoactive substance abuse, uncomplicated; F41.9 Anxiety disorder, unspecified; B96.1 Klebsiella pneumoniae [K. pneumoniae] as the cause of diseases classified elsewhere; B95.4 Other streptococcus as the cause of diseases classified elsewhere; B19.20 Unspecified viral hepatitis C without hepatic coma; F17.210 Nicotine dependence, cigarettes, uncomplicated
CPT/HCPCS: 10061; 80048; 80053; 80074; 80202; 80307; 82550; 82565; 83605; 85025; 85610; 85730; 86403; 87040; 87070; 87077; 87186; 87205; 90471; 90686; 96365; 96375; G0008; J1170; J2270; J2543; J3370; J7030; J7050; Q2038